=== PATIENT | female | born 1950 | race Caucasian/White ===

== ENCOUNTER 2024-04-02 07:23 | Outpatient (CLI) | payer MEDICARE, BC, SELFPAY ==
--- NOTE | ~2024-04-02 | MM_ITS ---
EXAMINATION: MM screening cristal BI w tracy HISTORY: Screening TECHNIQUE: Craniocaudal and mediolateral oblique 3-D tomosynthesis images were obtained and synthetic 2-D images were generated. CAD analysis was submitted and interpreted. COMPARISON: No prior mammogram is available for comparison at this institution. BREAST PARENCHYMAL COMPOSITION: Not dense: There are scattered areas of fibroglandular density. FINDINGS: There is no evidence of suspicious mass, calcification, or architectural distortion to sugg est malignancy in either breast. There has been no suspicious interval change. IMPRESSION: 1. No mammographic evidence of malignancy. 2. Recommend routine screening mammography in one year. BI-RADS Category 1: Negative Reviewed, dictated and finalized at location B.
--- NOTE | ~2024-04-02 | DEXA_ITS ---
Bone Density Report Name: YURY WILKINSON Age: 73 Sex: Female Ethnicity: White Date of : 1950 Indication: postmenopausal; screening for osteoporosis; height loss; cancer; rheumatoid arthritis; Referring Provider: KAYDEN WHITE Study: Bone densitometry was performed. Exam Date: April 02, 2024 Accession number: [id number] Bone Density: Region BMD T-score Z-score Classification AP Spine(L1-L4) 0.637 -3.7 -1.5 Osteoporosis Femoral Neck (Left) 0.517 -3.0 -1.1 Osteoporosis Total Hip (Left) 0.638 -2.5 -0.9 Osteoporosis Femoral Neck (Right) 0.455 -3.6 -1.6 Osteoporosis Total Hip (Right) 0.584 -2.9 -1.3 Osteoporosis Total Hip Mean 0.611 -2.7 -1.1 Osteoporosis World Health Organization criteria for BMD impression classify patients as: Normal (T-score at or above -1.0), Osteopenia (T-score between -1.0 and -2.5), or Osteoporosis (T-score at or below -2.5). 10-year Fracture Risk: FRAX not reported because: Some T-score for Spine Total or Hip Total or Femoral Neck at or below -2.5 Treated for osteoporosis Clinical Information Provided by Patient: Has rheumatoid arthritis Is being treated for osteoporosis Has used the following medications: Vitamin D, Calcium, embrel Has the following medical conditions: Cancer Patient maximum height was 59 Menopause Age: 39 Drinks caffeinated beverages Onset of menses at age 13 Number of children 1 Missed period for more than 6 months in a row Impression: The patient has osteoporosis, based on the Total Spine T-score. Discussion: It is important to ask patients whether they are taking their medications and to encourage continued and appropriate compliance with their osteoporosis therapies to reduce fracture risk. It is also important to review their risk factors and encourage appropriate calcium and vitamin D intakes, exercise, fall prevention and other lifestyle measures. Follow-Up: Consider a repeat BMD and Vertebral Fracture Assessment (VFA) exam in 2 years or sooner if medically necessary, to reassess this patient's status. Reported by: LUKAS on 04/02/2024 8:01:00 AM. Reviewed, dictated and finalized at location AElizabeth MARIN
== END 2024-04-02 07:24 | disposition home or self-care (01) ==
LOC: ANHIMG 07:24
PROVIDERS: PCP Family Medicine; Visit Provider Nurse Practitioner
DX: Z12.31 Encounter for screening mammogram for malignant neoplasm of breast (principal); Z78.0 Asymptomatic menopausal state; M81.0 Age-related osteoporosis without current pathological fracture
CPT/HCPCS: 77063; 77067; 77080